=== PATIENT | male | born 1980 | race Caucasian/White ===

== ENCOUNTER 2016-04-26 22:43 | Inpatient (IN) | payer BC ==
--- NOTE | 2016-04-26 23:17 | HP ---
COWS - Scale Resting Pulse: 0= [place] 80 or Below Sweatin= Chills/Flushing Restless Observation: 1= Difficult to Sit Still Pupil Size: 1= Pupils >than Normal Bone or Joint Aches: 1= Mild Discomfort Runny Nose/ Eye Tearin= Runny Nose/Eyes GI Upset > 30mins: 1= Stomach Cramp Tremor Observation: 2= Slight Tremor Visible Yawning Observation: 1= 1-2x During Session Anxiety or Irritability: 2=Irritable/Anxious Goose Flesh Skin: 3=Piloerection COWS Score: 15 Admission ROS S - HPI Chief Complaint: withdrawal sx Allergies/Adverse Reactions: Allergies Allergy/AdvReac Type Severity Reaction Status Date / Time No Known Allergies Allergy Verified 04/26/16 23:18 History of Present Illness: 36 years old male with long history of opiate dependence, has pituitary tumor x 3 years treated with clomiphene 50 mg + cabergolin 0.5 mg twice a week sunday + , last dose today 04/26/16 longest sobriety 2 weeks is admitted to rehab Exam Limitations: No Limitations - Ebola screening Have you traveled outside of the country in the last 21 days: No Have you had contact with anyone from an Ebola affected area: No Do you have a fever: No - Review of Systems Constitutional: Chills, Changes in sleep, Weight Stable EENT: reports: No Symptoms Reported Respiratory: reports: No Symptoms reported Cardiac: reports: No Symptoms Reported GI: reports: Constipated, Nausea, Poor Fluid Intake, Abdominal cramping : reports: No Symptoms Reported Musculoskeletal: reports: No Symptoms Reported Integumentary: reports: No Symptoms Reported Neuro: reports: Tremors Endocrine: reports: Unexplained Weight Gain (prior to pituitary tumor treatment) Hematology: reports: No Symptoms Reported Psychiatric: reports: Judgement Intact, Mood/Affect Appropiate, Orientated x3 Other Systems: Reviewed and Negative Patient History - Patient Medical History Hx Anemia: No Hx Asthma: No Hx Chronic Obstructive Pulmonary Disease (COPD): No Hx Cancer: No Hx Cardiac Disorders: No Hx Congestive Heart Failure: No Hx Hypertension: No Hx Hypercholesterolemia: No Hx Pacemaker: No HX Cerebrovascular Accident: No Hx Seizures: No Hx Dementia: No Hx Diabetes: No Hx Gastrointestinal Disorders: No Hx Liver Disease: No Hx Genitourinary Disorders: No Hx Sexually Transmitted Disorders: No Hx Renal Disease (ESRD): No Hx Thyroid Disease: No Hx Human Immunodeficiency Virus (HIV): No Hx Hepatitis C: No Hx Depression: No Hx Suicide Attempt: No Hx Bipolar Disorder: No Hx Schizophrenia: No - Patient Surgical History Past Surgical History: Yes Hx Neurologic Surgery: No Hx Cataract Extraction: No Hx Cardiac Surgery: No Hx Lung Surgery: No Hx Breast Surgery: No Hx Breast Biopsy: No Hx Abdominal Surgery: Yes (2013 gastric sleeve) Hx Appendectomy: No Hx Cholecystectomy: No Hx Genitourinary Surgery: No Hx Orthopedic Surgery: No Anesthesia Reaction: No - PPD History Previous Implant?: Yes Documented Results: Negative w/o proof Implanted On Prior [facility] Admission?: No PPD to be Administered?: Yes - Smoking Cessation Smoking history: Former smoker Have you smoked in the past 12 months: No Hx Chewing Tobacco Use: No Initiated information on smoking cessation: No - Substance & Tx. History Hx Alcohol Use: No Hx Substance Use: Yes Substance Use Type: Heroin Hx Substance Use Treatment: Yes - Substances Abused Heroin Route: Inhalation Frequency: Daily Amount used: 20 bags Age of first use: 34 Date of Last Use: 04/26/16 Family Disease History - Family Disease History Family Disease History: CA: Mother (breast) Admission Physical Exam S - Physical General Appearance: Yes: Appropriately Dressed, Mild Distress, Tremorous, Irritable, Sweating, Anxious HEENTM: Yes: Hearing grossly Normal, Normal ENT Inspection, Normocephalic, Normal Voice Respiratory: Yes: Chest Non-Tender, Lungs Clear, Normal Breath Sounds, No Respiratory Distress, No Accessory Muscle Use Neck: Yes: Supple, Trachea in good position Breast: Yes: Breasts Symetrical Cardiology: Yes: Regular Rhythm, Regular Rate, S1, S2 Abdominal: Yes: Non Tender, Soft Genitourinary: Yes: Within Normal Limits Back: Yes: Normal Inspection Musculoskeletal: Yes: full range of Motion, Gait Steady Extremities: Yes: Normal Range of Motion, Non-Tender, Tremors Neurological: Yes: Fully Oriented, Alert, Motor Strength 5/5, Normal Response, Depressed Affect Integumentary: Yes: Warm Lymphatic: Yes: Within Normal Limits - Diagnostic (1) Opioid dependence with withdrawal Current Visit: Yes Status: Acute (2) History of sleeve gastrectomy Current Visit: Yes Status: Resolved (3) Pituitary adenoma Current Visit: Yes Status: Acute Comment: x 3 years treated with clomiphene 50 mg + cabergolin 0.5 mg twice a week (4) Eczema Current Visit: Yes Status: Acute Qualifiers: Eczema type: flexural Qualified Code(s): L20.82 - Flexural eczema Comment: both elbows Cleared for Admission S - Detox or Rehab [facility] Level of Care: Medically Managed Detox Regimen/Protocol: Methadone
[2016-04-26 23:27] VITALS: BMI 28.6
[2016-04-26] MEDS ORDERED: P-EPHED 60MG/TRIPROLIDI 2.5MG TABLET PO PRN (23:29)
[2016-04-26] MEDS ORDERED: ACETAMINOPHEN 325 MG TABLET (FP) PO PRN (23:29)
[2016-04-26] MEDS ORDERED: guaiFENesin/D-METHORPHAN HB 10 ML UNIT-DOSE CUPS PO PRN (23:29)
[2016-04-26] MEDS ORDERED: IBUPROFEN 400 MG TABLET (FP) PO PRN (23:29)
[2016-04-26] MEDS ORDERED: MAGNESIUM CITRATE 300 ML BOTTLE PO PRN (23:29)
[2016-04-26] MEDS ORDERED: MENTHOL/PHENOL 1 EACH UD MM PRN (23:29)
[2016-04-26] MEDS ORDERED: LOPERAMIDE HCL 2 MG CAPSULE PO PRN (23:29)
[2016-04-26] MEDS ORDERED: MAG HYDROX/AL HYDROX/SIMETH 30 ML UNIT-DOSE CUP PO PRN (23:29)
[2016-04-26] MEDS ORDERED: MAGNESIUM HYDROX 2400MG/30ML ORAL SUSPENSION 30 ML CUP PO PRN (23:29)
[2016-04-26] MEDS ORDERED: COLLOIDAL OATMEAL 1 BAR EACH TP PRN (23:50)
[2016-04-27] MEDS ORDERED: METHADONE HCL 10 MG TABLET (FOR DETOX USE ONLY) PO ONE ×3 (00:06→23:00)
[2016-04-27] MEDS: diazePAM 5 MG TABLET PO PRN ×4 (00:46→22:26)
[2016-04-27] MEDS: diphenhydrAMINE HCL 50 MG CAPSULE PO PRN ×2 (00:48→22:26)
[2016-04-27 09:39] LABS: MCHC 33.2 g/dl (32.0-35.9); MEAN CELL VOLUME 90.1 fl (80-96); PLATELET COUNT 143 K/MM3 (134-434); RDW 13.7 % (11.9-15.9); WHITE BLOOD COUNT 6.2 K/mm3 (4.0-10.0)
[2016-04-27 10:04] LABS: ALBUMIN 3.7 g/dl (3.4-5.0); ALK PHOS 54 U/L (45-117); ANION GAP 8 (8-16); BILIRUBIN,TOTAL 0.5 mg/dL (0.2-1.0); CALCIUM 8.8 mg/dL (8.5-10.1); CO2 28 mmol/L (21-32); CREATININE 0.7 mg/dL (0.7-1.3); GLUCOSE,RANDOM 81 mg/dL (74-106); SGOT/AST 11 U/L (15-37); SGPT/ALT 16 U/L (12-78); TOT PROT 6.7 g/dl (6.4-8.2)
[2016-04-27] MEDS: CABERGOLINE PO SCH (10:17)
[2016-04-27] MEDS: PRENATAL VITAMINS W/ FOLIC ACID TABLET (FP) PO SCH (10:18)
[2016-04-27] MEDS: CLOMIPHENE CITRATE 50 MG PO SCH (10:21)
--- NOTE | 2016-04-27 10:36 | EKG ---
Test Reason : Blood Pressure : / mmHG Vent. Rate : 060 BPM Atrial Rate : 060 BPM P-R Int : 172 ms QRS Dur : 100 ms QT Int : 432 ms P-R-T Axes : 059 026 035 degrees QTc Int : 432 ms NORMAL SINUS RHYTHM NORMAL ECG NO PREVIOUS ECGS AVAILABLE Confirmed by JOHNNY MICHAELS MD ([id number]) on 04/27/2016 10:36:36 AM Referred By: Confirmed By:JOHNNY MICHAELS MD
--- NOTE | 2016-04-27 10:57 | CONSULT ---
[facility] Psychiatric Consult - Data Date of interview: 04/27/16 Admission source: [facility] Identifying data: This is 36 years old male with no psychiatric hospitalization history intoxicated with: Heroin and Nicotine Substance Abuse History: Smoking Cessation. Smoking history: Former smoker. Have you smoked in the past 12 months: No. Hx Chewing Tobacco Use: No. Initiated information on smoking cessation: No. - Substance & Tx. History. Hx Alcohol Use: No. Hx Substance Use: Yes. Substance Use Type: Heroin. Hx Substance Use Treatment: Yes. - Substances Abused. Heroin. Route: Inhalation. Frequency: Daily. Amount used: 20 bags. Age of first use: 34. Date of Last Use: 04/26/16 Medical History: Eczema, Pituitery Adenoma history, Psychiatric History: Patient reports history of anxiety, asking for anxiety medications to help withdrawal process, denies [id number] medications prior to admission Physical/Sexual Abuse/Trauma History: Denies Additional Comment: Vistaril 50mg po q4 for anxiety Mental Status Exam - Mental Status Exam Alert and Oriented to: Person Patient Appearance: Well Groomed Mood: Anxious Patient Behavior: Cooperative Speech Pattern: Appropriate Voice Loudness: Normal Thought Process: Goal Oriented Thought Disorder: Being Controlled Hallucinations: Denies Suicidal Ideation: Denies Homicidal Ideation: Denies Insight/Judgement: Fair Sleep: Difficulty falling asleep Appetite: Fair Muscle strength/Tone: Normal Gait/Station: Normal Additional Comments: Vistaril 50mg po q4 for anxiety Psychiatric Findings - Problem List ([place] 1, 2,3) (1) Opioid dependence with withdrawal Current Visit: Yes Status: Acute (2) Nicotine dependence Current Visit: Yes Status: Acute (3) Drug-induced mood disorder Current Visit: Yes Status: Acute - Initial Treatment Plan Initial Treatment Plan: Vistaril 50mg po q4 for anxiety
--- NOTE | 2016-04-27 13:25 | PN ---
BHS COWS - Scale Resting Pulse: 0= [place] 80 or Below Sweatin=Flushed/Facial Moisture Restless Observation: 1= Difficult to Sit Still Pupil Size: 0= Normal to Room Light Bone or Joint Aches: 2= Severe Diffuse Aches Runny Nose/ Eye Tearin= Nasal Congestion GI Upset > 30mins: 1= Stomach Cramp Tremor Observation of Outstretched Hands: 2= Slight Tremor Visible Yawning Observation: 2= >3x During Session Anxiety or Irritability: 2=Irritable/Anxious Goose Flesh Skin: 0=Smooth Skin COWS Score: 13 BHS Progress Note (SOAP) Subjective: anxiety sweats shakes irritable interrupted sleep Objective: 04/27/16 13:24 Vital Signs Temperature 98.6 F 04/27/16 10:12 Pulse Rate 76 04/27/16 10:12 Respiratory Rate 18 04/27/16 10:12 Blood Pressure 127/81 04/27/16 10:12 O2 Sat by Pulse Oximetry (%) Laboratory Tests 04/27/16 04/27/16 06:30 06:30 WBC 6.2 RBC 4.39 Hgb 13.1 Hct 39.6 MCV 90.1 MCHC 33.2 RDW 13.7 Plt Count 143 MPV 10.0 Sodium 141 Potassium 4.0 Chloride 105 Carbon Dioxide 28 Anion Gap 8 BUN 9 Creatinine 0.7 Creat Clearance w eGFR > 60 Random Glucose 81 Calcium 8.8 Total Bilirubin 0.5 AST 11 L ALT 16 Alkaline Phosphatase 54 Total Protein 6.7 Albumin 3.7 labs pending awake/alert ambulating no acute distress Assessment: 04/27/16 13:24 withdrawal sx Plan: continue detox increase fluids
[2016-04-27 15:35] LABS: URINE APPEARANCE CLEAR; URINE BILIRUBIN NEGATIVE (NEGATIVE); URINE BLOOD NEGATIVE (NEGATIVE); URINE COLOR AMBER; URINE GLUCOSE (UA) NEGATIVE (NEGATIVE); URINE KETONE NEGATIVE (NEGATIVE); URINE LEUK ESTERASE NEGATIVE (NEGATIVE); URINE NITRITE NEGATIVE (NEGATIVE); URINE PROTEIN NEGATIVE (NEGATIVE); URINE UROBILINOGEN 2.0 E.U/dl E.U./dl (0.2-1.0)
[2016-04-27] MEDS: hydrOXYzine PAMOATE 50 MG CAPSULE (FP) PO PRN (19:14)
[2016-04-27] MEDS: THIAMINE HCL 100 MG TABLET (FP) PO SCH (22:26)
[2016-04-28] MEDS: diazePAM 5 MG TABLET PO PRN ×4 (02:18→22:28)
[2016-04-28] MEDS ORDERED: METHADONE HCL 10 MG TABLET (FOR DETOX USE ONLY) PO ONE (10:00)
--- NOTE | 2016-04-28 10:22 | PN ---
BHS COWS - Scale Resting Pulse: 0= [place] 80 or Below Sweatin=Flushed/Facial Moisture Restless Observation: 1= Difficult to Sit Still Pupil Size: 0= Normal to Room Light Bone or Joint Aches: 2= Severe Diffuse Aches Runny Nose/ Eye Tearin= Nasal Congestion GI Upset > 30mins: 2= Nausea/Diarrhea Tremor Observation of Outstretched Hands: 2= Slight Tremor Visible Yawning Observation: 2= >3x During Session Anxiety or Irritability: 1=Feels Anxious/Irritable Goose Flesh Skin: 0=Smooth Skin COWS Score: 13 BHS Progress Note (SOAP) Subjective: tired sweats shakes interrupted sleep agitation I need something for sleep beside benadryl Objective: 04/28/16 10:20 Vital Signs Temperature 97.7 F 04/28/16 06:34 Pulse Rate 62 04/28/16 06:34 Respiratory Rate 16 04/28/16 06:34 Blood Pressure 106/72 04/28/16 06:34 O2 Sat by Pulse Oximetry (%) Laboratory Tests 04/27/16 04/27/16 04/27/16 06:30 06:30 06:30 WBC 6.2 RBC 4.39 Hgb 13.1 Hct 39.6 MCV 90.1 MCHC 33.2 RDW 13.7 Plt Count 143 MPV 10.0 Sodium 141 Potassium 4.0 Chloride 105 Carbon Dioxide 28 Anion Gap 8 BUN 9 Creatinine 0.7 Creat Clearance w eGFR > 60 Random Glucose 81 Calcium 8.8 Total Bilirubin 0.5 AST 11 L ALT 16 Alkaline Phosphatase 54 Total Protein 6.7 Albumin 3.7 Urine Color Urine Appearance Urine pH Ur Specific [place] Urine Protein Urine Glucose (UA) Urine Ketones Urine Blood Urine Nitrite Urine Bilirubin Urine Urobilinogen Ur Leukocyte Esterase RPR Titer Nonreactive 04/27/16 14:00 WBC RBC Hgb Hct MCV MCHC RDW Plt Count MPV Sodium Potassium Chloride Carbon Dioxide Anion Gap BUN Creatinine Creat Clearance w eGFR Random Glucose Calcium Total Bilirubin AST ALT Alkaline Phosphatase Total Protein Albumin Urine Color [place] Urine Appearance Clear Urine pH 5.0 Ur Specific [place] 1.025 Urine Protein Negative Urine Glucose (UA) Negative Urine Ketones Negative Urine Blood Negative Urine Nitrite Negative Urine Bilirubin Negative Urine Urobilinogen 2.0 e.u/dl Ur Leukocyte Esterase Negative RPR Titer awake/alert ambulating no acute distress Assessment: 04/28/16 10:21 withdrawal sx Plan: continue detox increase fluids psych ordered
[2016-04-28] MEDS: PRENATAL VITAMINS W/ FOLIC ACID TABLET (FP) PO SCH (10:40)
--- NOTE | 2016-04-28 11:09 | PN ---
Psychiatric Progress Note Vital Signs: Vital Signs Period Temp Pulse Resp BP Sys/Wise Pulse Ox Last 24 Hr 97.7 F-98.4 F 62-80 16-20 105-126/66-90 Date of Session: 04/28/16 Chief Complaint:: " I cannot sleep at night." HPI: Case of a 36 y/o male receiving detox treatment on for opioid dependence.Doing well except for complaint of refractory insomnia. ROS: Unremarkable.No physical complaints offered.Medical issues (eczma, pitituary adenoma) are addressed.Intact cognition. Current Medications: Active Medications Generic Name Dose Route Start Last Admin Trade Name Freq PRN Reason Stop Dose Admin Acetaminophen 650 mg 04/26/16 23:29 Tylenol - PO Q4H PRN FEVER OR PAIN Al Hydroxide/Mg Hydroxide 30 ml 04/26/16 23:29 Mylanta Oral Suspension - PO Q6H PRN DYSPEPSIA Colloidal Oatmeal 1 applic 04/26/16 23:50 04/27/16 10:20 Aveeno Soap - TP 1 applic DAILY PRN Administration HYGEINE Diazepam 10 mg 04/27/16 00:06 04/28/16 07:17 Valium - PO 04/30/16 00:05 10 mg Q4H PRN Administration WITHDRAWAL(CONT SUBST) Diphenhydramine HCl 50 mg 04/26/16 23:29 04/27/16 22:26 Benadryl - PO 50 mg HSMR1 PRN Administration INSOMNIA Eucalyptus/Menthol/Phenol/Sorbitol 1 each 04/26/16 23:29 Cepastat Lozenge - MM Q4H PRN SORE THROAT Guaifenesin 10 ml 04/26/16 23:29 Robitussin Dm - PO Q6H PRN COUGH Hydroxyzine Pamoate 50 mg 04/27/16 10:01 04/27/16 19:14 Vistaril - PO 50 mg Q4H PRN Administration FOR ANXIETY Ibuprofen 400 mg 04/26/16 23:29 Motrin - PO Q6H PRN SEVERE PAIN Loperamide HCl 4 mg 04/26/16 23:29 Imodium - PO Q6H PRN DIARRHEA Magnesium Citrate 300 ml 04/26/16 23:29 Citroma - PO Q48H PRN CONSTIPATION Magnesium Hydroxide 30 ml 04/26/16 23:29 Milk Of Magnesia - PO DAILY PRN CONSTIPATION Methadone HCl 10 mg 05/01/16 10:00 Dolophine - PO 05/01/16 10:01 ONCE ONE Methadone HCl 15 mg 04/29/16 10:00 Dolophine - PO 04/29/16 10:01 ONCE ONE Methadone HCl 15 mg 04/30/16 10:00 Dolophine - PO 04/30/16 10:01 ONCE ONE Methadone HCl 5 mg 05/02/16 06:00 Dolophine - PO 05/02/16 06:01 ONCE@0600 ONE Non-Formulary Medication 0.5 mg 04/27/16 10:00 04/27/16 10:17 Cabergoline [Dostinex -] PO Not Given SuTh@1000 SUSI Non-Formulary Medication 50 mg 04/27/16 10:09 04/27/16 10:21 Clomiphene Citrate [Clomiphene Citrate] PO Not Given SuTh@1000 SUSI Multivit/Folic Acid/Iron 1 tab 04/27/16 10:00 04/28/16 10:40 Vitamins ([facility]) - PO 1 tab DAILY SUSI Administration Pseudoephedrine/Triprolidine 1 combo 04/26/16 23:29 Actifed - PO TID PRN NASAL CONGESTION Thiamine HCl 100 mg 04/27/16 22:00 04/27/16 22:26 Vitamin B1 - PO 100 mg HS SUSI Administration Medication(s) Change(s): Patient is offered zolpidem but he verbalizes his preference for quetiapine.Will initiate seroquel 50 mg po hs.Side effects/ benefits discussed with the patient.He agrees with this plan. Current Side Effect: No Lab tests ordered: No Lab tests reviewed: Yes Provider note:: Asked to see this patient for complaint of insomnia.Chart reviewed.Dr Jauregui's note is appreciated.Met with the patient at bedside.Complaint validated.Mr Elizabeth reports feeling fine except for insomnia.Hospital course is otherwise benign.Baseline mental status. Total face to face time:: 30 Mental Status Exam - Mental Status Exam Alert and Oriented to: Time, Place, Person Cognitive Function: Good Patient Appearance: Well Groomed Mood: Nervous, Withdrawn, Anxious Affect: Mood Congruent Patient Behavior: Fatigued, Appropriate, Cooperative Speech Pattern: Clear, Appropriate Voice Loudness: Normal Thought Process: Intact, Goal Oriented Thought Disorder: Not Present Hallucinations: Denies Suicidal Ideation: Denies Homicidal Ideation: Denies Insight/Judgement: Fair Sleep: Poorly, Difficulty falling asleep Appetite: Good Muscle strength/Tone: Normal Gait/Station: Normal Psychiatric Treatment Plan - Problem List (1) Opioid dependence with withdrawal Current Visit: Yes (2) Nicotine dependence Current Visit: Yes (3) Drug-induced mood disorder Current Visit: Yes (4) Eczema Current Visit: Yes Qualifiers: Eczema type: flexural Qualified Code(s): L20.82 - Flexural eczema Comment: both elbows (5) Pituitary adenoma Current Visit: Yes Comment: x 3 years treated with clomiphene 50 mg + cabergolin 0.5 mg twice a week (6) History of sleeve gastrectomy Current Visit: Yes (7) Insomnia Current Visit: Yes
[2016-04-28] MEDS: THIAMINE HCL 100 MG TABLET (FP) PO SCH (22:28)
[2016-04-28] MEDS: QUEtiapine FUMARATE 50 MG TABLET PO SCH (22:28)
[2016-04-29] MEDS: diphenhydrAMINE HCL 50 MG CAPSULE PO PRN (01:11)
[2016-04-29] MEDS: diazePAM 5 MG TABLET PO PRN ×4 (02:44→22:21)
[2016-04-29] MEDS: hydrOXYzine PAMOATE 50 MG CAPSULE (FP) PO PRN (03:52)
[2016-04-29] MEDS ORDERED: METHADONE HCL 5 MG TABLET (FOR DETOX USE ONLY) PO ONE (10:00)
[2016-04-29] MEDS: PRENATAL VITAMINS W/ FOLIC ACID TABLET (FP) PO SCH (10:09)
--- NOTE | 2016-04-29 11:20 | PN ---
BHS Progress Note (SOAP) Subjective: ALERT,IRRITABLE,ANXIOUS,INTERRUPTED SLEEP,PAIN IN THE BODY AND BACK Objective: 04/29/16 11:19 Vital Signs Temperature 98.2 F 04/29/16 09:41 Pulse Rate 79 04/29/16 09:41 Respiratory Rate 18 04/29/16 09:41 Blood Pressure 134/81 04/29/16 09:41 O2 Sat by Pulse Oximetry (%) 04/29/16 11:24 04/29/16 11:25 04/29/16 11:25 Assessment: 04/29/16 11:25 WITHDRAWAL SYMPTOM Plan: CONTINUE DETOX
[2016-04-29] MEDS: THIAMINE HCL 100 MG TABLET (FP) PO SCH (22:20)
[2016-04-29] MEDS: QUEtiapine FUMARATE 50 MG TABLET PO SCH (22:20)
[2016-04-30] MEDS: hydrOXYzine PAMOATE 50 MG CAPSULE (FP) PO PRN ×2 (02:15→22:51)
[2016-04-30] MEDS ORDERED: METHADONE HCL 5 MG TABLET (FOR DETOX USE ONLY) PO ONE (10:00)
[2016-04-30] MEDS: CLOMIPHENE CITRATE 50 MG PO SCH (10:11)
[2016-04-30] MEDS: PRENATAL VITAMINS W/ FOLIC ACID TABLET (FP) PO SCH (10:11)
[2016-04-30] MEDS: CABERGOLINE PO SCH (10:11)
--- NOTE | 2016-04-30 14:07 | PN ---
BHS Progress Note (SOAP) Subjective: sweating,interrupted sleep,restless Objective: 04/30/16 14:06 Vital Signs - 8 hr 04/30/16 10:00 Temperature 98.1 F Pulse Rate 85 Respiratory 16 Rate Blood Pressure 123/88 Laboratory Tests 04/27/16 04/27/16 04/27/16 06:30 06:30 06:30 WBC 6.2 RBC 4.39 Hgb 13.1 Hct 39.6 MCV 90.1 MCHC 33.2 RDW 13.7 Plt Count 143 MPV 10.0 Sodium 141 Potassium 4.0 Chloride 105 Carbon Dioxide 28 Anion Gap 8 BUN 9 Creatinine 0.7 Creat Clearance w eGFR > 60 Random Glucose 81 Calcium 8.8 Total Bilirubin 0.5 AST 11 L ALT 16 Alkaline Phosphatase 54 Total Protein 6.7 Albumin 3.7 Urine Color Urine Appearance Urine pH Ur Specific [place] Urine Protein Urine Glucose (UA) Urine Ketones Urine Blood Urine Nitrite Urine Bilirubin Urine Urobilinogen Ur Leukocyte Esterase RPR Titer Nonreactive 04/27/16 14:00 WBC RBC Hgb Hct MCV MCHC RDW Plt Count MPV Sodium Potassium Chloride Carbon Dioxide Anion Gap BUN Creatinine Creat Clearance w eGFR Random Glucose Calcium Total Bilirubin AST ALT Alkaline Phosphatase Total Protein Albumin Urine Color [place] Urine Appearance Clear Urine pH 5.0 Ur Specific [place] 1.025 Urine Protein Negative Urine Glucose (UA) Negative Urine Ketones Negative Urine Blood Negative Urine Nitrite Negative Urine Bilirubin Negative Urine Urobilinogen 2.0 e.u/dl Ur Leukocyte Esterase Negative RPR Titer labs noted Assessment: 04/30/16 14:06 withdrawal sx. Plan: continue detox
[2016-04-30] MEDS: diphenhydrAMINE HCL 50 MG CAPSULE PO PRN (22:50)
[2016-04-30] MEDS: QUEtiapine FUMARATE 50 MG TABLET PO SCH (22:51)
[2016-04-30] MEDS: THIAMINE HCL 100 MG TABLET (FP) PO SCH (22:51)
[2016-05-01] MEDS: hydrOXYzine PAMOATE 50 MG CAPSULE (FP) PO PRN ×3 (02:48→22:28)
[2016-05-01] MEDS ORDERED: METHADONE HCL 10 MG TABLET (FOR DETOX USE ONLY) PO ONE (10:00)
--- NOTE | 2016-05-01 10:19 | PN ---
BHS Progress Note (SOAP) Subjective: interrupted sleep Objective: 05/01/16 10:18 Vital Signs Temperature 97.9 F 05/01/16 10:11 Pulse Rate 84 05/01/16 10:11 Respiratory Rate 16 05/01/16 10:11 Blood Pressure 121/80 05/01/16 10:11 O2 Sat by Pulse Oximetry (%) awake/alert ambulating no acute distress Assessment: 05/01/16 10:19 withdrawal sx Plan: continue detox increase fluids d/c in am
[2016-05-01] MEDS: PRENATAL VITAMINS W/ FOLIC ACID TABLET (FP) PO SCH (10:26)
[2016-05-01] MEDS: THIAMINE HCL 100 MG TABLET (FP) PO SCH (22:27)
[2016-05-01] MEDS: QUEtiapine FUMARATE 50 MG TABLET PO SCH (22:27)
[2016-05-02] MEDS: hydrOXYzine PAMOATE 50 MG CAPSULE (FP) PO PRN (05:35)
[2016-05-02] MEDS ORDERED: METHADONE HCL 5 MG TABLET (FOR DETOX USE ONLY) PO ONE (06:00)
--- NOTE | 2016-05-02 09:20 | DS ---
[facility] Detox Discharge Summary Admission Date: 04/26/16 Discharge Date: 05/02/16 - History Present History: Opioid Dependence - Physical Exam Results Vital Signs: Vital Signs Temperature 97.7 F 05/02/16 06:14 Pulse Rate 71 05/02/16 06:14 Respiratory Rate 18 05/02/16 06:14 Blood Pressure 110/69 05/02/16 06:14 O2 Sat by Pulse Oximetry (%) - Treatment Hospital Course: Detox Protocol Followed, Detoxed Safely, Responded well, Discharged Condition Good - Medication Discharge Medications: Ambulatory Orders Cabergoline [Dostinex -] 0.5 mg PO WEEKLY 04/26/16 Clomiphene Citrate 50 mg PO WEEKLY 04/26/16 - Diagnosis (1) Drug-induced mood disorder Current Visit: Yes Status: Chronic (2) Eczema Current Visit: Yes Status: Chronic Qualifiers: Eczema type: unspecified Qualified Code(s): L30.9 - Dermatitis, unspecified (3) Insomnia Current Visit: Yes Status: Chronic Qualifiers: Insomnia type: unspecified Qualified Code(s): G47.00 - Insomnia, unspecified (4) Nicotine dependence Current Visit: Yes Status: Chronic Qualifiers: Nicotine product type: cigarettes Substance use status: uncomplicated Qualified Code(s): F17.210 - Nicotine dependence, cigarettes, uncomplicated (5) Opioid dependence with withdrawal Current Visit: Yes Status: Acute (6) Pituitary adenoma Current Visit: Yes Status: Acute (7) History of sleeve gastrectomy Current Visit: Yes Status: Resolved - AMA Did Patient Leave Against Medical Advice: No
[2016-05-02 10:04] VITALS: BP 116/67; PULSE 87; TEMP 97.9
== END 2016-05-02 09:50 | disposition home or self-care (01) | DRG 897 ==
LOC: YASAS 22:43 → Y6N 23:56
PROVIDERS: ADMIT Internal Medicine; ATTEND Internal Medicine Addiction Medicine
PROC: HZ2ZZZZ Detoxification Services for Substance Abuse Treatment (ICD-10-PCS; principal; 2016-05-02)
DX: F11.23 Opioid dependence with withdrawal (principal); F17.210 Nicotine dependence, cigarettes, uncomplicated; F19.24 Other psychoactive substance dependence with psychoactive substance-induced mood disorder; G47.00 Insomnia, unspecified; D35.2 Benign neoplasm of pituitary gland; Z98.84 Bariatric surgery status
CPT/HCPCS: 36415; 80053; 81003; 85027; 86593; 93005; 93010